=== PATIENT | female | born 1960 | race Caucasian/White ===

== ENCOUNTER → 2020-11-17 | Day surgery (SDC) | payer BC | LOC: MSO 07:03 | DX: Z12.11 Encounter for screening for malignant neoplasm of colon (principal); D12.3 Benign neoplasm of transverse colon; Z79.82 Long term (current) use of aspirin; G40.909 Epilepsy, unspecified, not intractable, without status epilepticus; F17.210 Nicotine dependence, cigarettes, uncomplicated | CPT/HCPCS: 00811; J2704; J7120 ==